=== PATIENT | male | born 1995 | race Caucasian/White ===

== ENCOUNTER 2018-08-02 10:33 | Emergency (ER) | payer SELFPAY ==
[2018-08-02] MEDS ORDERED: LIDOCAINE 1% INJ-PF (10 MG/ML) 30 ML SDV INJ ONE (12:09)
[2018-08-02] MEDS ORDERED: ACETAMINOPHEN 325 MG TABLET PO ONE (12:10)
[2018-08-02] MEDS ORDERED: DIPH/PERTUSS(ACELL)/TETANUS VAC/PF 0.5 ML SYR (>=10YO) IM ONE (12:10)
--- NOTE | 2018-08-02 12:19 | ER Document Report ---
ED General - General Chief Complaint: Laceration Stated Complaint: LACERATION ON FINGER Time Seen by Provider: 08/02/18 12:09 Primary Care Provider: [facility] [Provider Group] - Follow up in 1 week TRAVEL OUTSIDE OF THE [place] IN LAST 30 DAYS: No - HPI Notes: Patient is a 22-year-old male that presents to the emergency department for chief complaint of left hand laceration. 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 He does not know when his last tetanus vaccine was. He denies numbness or weakness. He denies any foreign body sensation. He has not taken any [id number] pain medication. He describes a sharp pain in his left index finger and palm around the incision site. Past Medical History: Negative Past Surgical History: Negative Social History: Occasional tobacco. Denies drug and alcohol use Family History: Reviewed and noncontributory for presenting illness Allergies: Reviewed, see documented allergy list. REVIEW OF SYSTEMS: CONSTITUTIONAL : No fever No chills No diaphoresis No recent illness EENT: No vision changes No congestion No sore throat CARDIOVASCULAR: No chest pain No palpitations RESPIRATORY: No shortness of breath No cough No difficulty breathing GASTROINTESTINAL: No abdominal pain No nausea No vomiting No diarrhea GENITOURINARY: No dysuria No hematuria No difficulty urinating MUSCULOSKELETAL: No back pain No leg pain Left hand pain SKIN: No rashes Left hand laceration LYMPHATIC: No swollen, enlarged glands. NEUROLOGICAL: No lightheadedness No headache No weakness No paresthesias PSYCHIATRIC: No anxiety No depression PHYSICAL EXAMINATION: Vital signs reviewed, nursing noted reviewed. GENERAL: Well-appearing, well-nourished and in no acute distress. HEAD: Atraumatic, normocephalic. EYES: Eyes appear normal, extraocular movements intact, sclera anicteric, conjunctiva are normal. ENT: nares patent, oropharynx clear without exudates. Moist mucous membranes. NECK: Normal range of motion, supple without lymphadenopathy LUNGS: Breath sounds clear to auscultation bilaterally and equal. No wheezes rales or rhonchi. HEART: Regular rate and rhythm without murmurs ABDOMEN: Soft, nontender, normoactive bowel sounds. No rebound, guarding, or rigidity. No masses appreciated. EXTREMITIES: Normal strength with flexion of left index finger, no bony deformity, nontender, good range of motion, no pitting or edema. NEUROLOGICAL: No focal neurological deficits. Moves all extremities spontaneously Motor and sensory grossly intact on exam. PSYCH: Normal mood, normal affect. SKIN: Warm, Dry, normal turgor, 1.5 cm irregular full-thickness laceration to flexor surface of left index finger overlying the MCP joint. 1.0 cm flap laceration to left palm at base of first MCP joint with no active bleeding. - Related Data Allergies/Adverse Reactions: No Known Allergies Allergy (Unverified 08/02/18 10:37) Past Medical History - Social History Smoking Status: Current Every Day Smoker Family History: Reviewed & Not Pertinent Patient has suicidal ideation: No Patient has homicidal ideation: No Renal/ Medical History: Denies: Hx Peritoneal Dialysis Physical Exam - Vital signs Vitals: Temp Pulse Resp BP Pulse Ox 98.4 F 77 16 144/86 H 95 08/02/18 10:44 08/02/18 10:44 08/02/18 10:44 08/02/18 10:44 08/02/18 10:44 Course - Re-evaluation Re-evalutation: 08/02/18 13:36 Vitals reviewed. Nursing notes reviewed. Patient's tetanus vaccine is updated. X-ray shows no foreign material or bony injury. Patient's lacerations were repaired. He was placed in an AlumaFoam splint to immobilize the lacerations. Patient will follow for suture removal in 7-10 days. He was counseled on signs of infection as well as wound care. He is discharged in stable condition. Hand X-Ray 08/02/18 11:53 IMPRESSION: No fracture or dislocation of the left hand. No radiopaque foreign body identified. - Vital Signs Vital signs: Temp Pulse Resp BP Pulse Ox 98.4 F 77 16 144/86 H 95 08/02/18 10:44 08/02/18 10:44 08/02/18 10:44 08/02/18 10:44 08/02/18 10:44 Procedures - Immobilization Left Finger Time completed: 13:36 Pre-Proc Neuro Vasc Exam: Normal Immobilizer type: Finger splint (Static) Performed by: RN Post-Proc Neuro Vasc Exam: Normal Alignment checked and good: Yes - Laceration/Wound Repair Finger Time completed: 13:33 Wound length (cm): 1.5 Wound's Depth, Shape: Irregular, Other - full thickness Laceration pre-procedure: Sterile drapes applied, Shur-Clens applied Anesthetic type: 1% Lidocaine Volume Anesthetic (mLs): 3 - digital block Wound explored: Clean, No foreign body removed Irrigated w/ Saline (mLs): 250 Wound Repaired With: Sutures Suture Size/Type: 4:0, Nylon Number of Sutures: 4 Layer Closure?: No Post-procedure wound care: Splint applied, Other - gauze dressing Post-procedure NV exam normal: Yes Complications: No Notes: 08/02/18 13:34 Wound explored through full range of motion in a bloodless field and no involvement of the flexor tendon or deep neurovascular structures were involved Left Hand Time completed: 13:35 Wound length (cm): 1.0 Wound's Depth, Shape: Flap, Other - full thickness Laceration pre-procedure: Sterile drapes applied, Shur-Clens applied Anesthetic type: 1% Lidocaine Volume Anesthetic (mLs): 1 Wound explored: Clean, No foreign body removed Irrigated w/ Saline (mLs): 250 Wound Debrided: Minimal Wound Repaired With: Sutures Suture Size/Type: 4:0, Nylon Number of Sutures: 2 Layer Closure?: No Post-procedure wound care: Splint applied Post-procedure NV exam normal: Yes Complications: Yes Discharge - Discharge Clinical Impression: Hand laceration Qualifiers: Encounter type: initial encounter Foreign body presence: without foreign body Laterality: left Qualified Code(s): S61.412A - Laceration without foreign body of left hand, initial encounter Condition: Stable Disposition: HOME, SELF-CARE Instructions: Laceration Care ([facility]), Tetanus Immunization Given ([facility]) Additional Instructions: Please return to the emergency department if you have any worsening, or concern of your symptoms. Please return to the emergency department if you develop chest pain, difficulty breathing, severe abdominal pain, or ongoing vomiting. Please follow-up with your primary care physician in 2-3 days and any other recommended physicians. If prescribed, take all medications as directed. If you have any questions or concerns do not hesitate to return the emergency department for evaluation. Have your stitches removed in 7-10 days by her primary care doctor Referrals: [facility] [Provider Group] - Follow up in 1 week
--- NOTE | 2018-08-02 12:48 | RADIOLOGY REPORT (SQ) ---
EXAM DESCRIPTION: HAND LEFT 3 VIEWS COMPLETED DATE/TIME: 08/02/2018 12:31 pm REASON FOR STUDY: palm and index finger laceration COMPARISON: None. EXAM PARAMETERS: NUMBER OF VIEWS: Four views. TECHNIQUE: AP, lateral and oblique radiographic images acquired of the left hand. LIMITATIONS: None. FINDINGS: MINERALIZATION: Normal. BONES: No acute fracture or dislocation. No worrisome bone lesions. JOINTS: No effusions. SOFT TISSUES: No soft tissue swelling. No foreign body. OTHER: No other significant finding. IMPRESSION: No fracture or dislocation of the left hand. No radiopaque foreign body identified. TECHNICAL DOCUMENTATION: JOB ID: [id number] [employer]- All Rights Reserved Reading location - IP/workstation name: [email or web address]
[2018-08-02 13:39] VITALS: BP 143/86
== END 2018-08-02 13:54 | disposition home or self-care (01) ==
LOC: ER 10:33
DX: S61.211A Laceration without foreign body of left index finger without damage to nail, initial encounter (principal); S61.412A Laceration without foreign body of left hand, initial encounter; W27.8XXA Contact with other nonpowered hand tool, initial encounter; Z23 Encounter for immunization; F17.200 Nicotine dependence, unspecified, uncomplicated
CPT/HCPCS: 99283; 90471; 73130; 90715; 12001; J3490